=== PATIENT | male | born 1980 | race Caucasian/White ===

== ENCOUNTER → 2022-12-31 | Outpatient (CLI) | payer OTHER | END | disposition home or self-care (01) | LOC: RADPV 09:12 | PROVIDERS: ATTEND Chiropractor | DX: S62.90XA Unspecified fracture of unspecified hand, initial encounter for closed fracture (principal); I07.1 Rheumatic tricuspid insufficiency; R00.1 Bradycardia, unspecified; M19.032 Primary osteoarthritis, left wrist; M19.072 Primary osteoarthritis, left ankle and foot; M47.814 Spondylosis without myelopathy or radiculopathy, thoracic region; R00.2 Palpitations; M16.0 Bilateral primary osteoarthritis of hip; M72.2 Plantar fascial fibromatosis; X58.XXXA Exposure to other specified factors, initial encounter; Y93.89 Activity, other specified; Y92.89 Other specified places as the place of occurrence of the external cause; Y99.8 Other external cause status | CPT/HCPCS: 71046; 93005; 93306 ==